=== PATIENT | female | born 1995 | race Two or more races ===

== ENCOUNTER 2023-09-22 19:30 | Emergency (ER) | payer MEDICAID, OTHER ==
[~2023-09-22] VITALS: Ht 167.6 cm; Wt 97.7 kg
[2023-09-22 20:22] LABS: Basophils # (auto) 0 10 ^3/uL (0-0.2); Basophils % (auto) 0.4 % (0.0-2.0); Eosinophils # (auto) 0.1 10 ^3/uL (0-0.8); Eosinophils % (auto) 0.8 % (0.0-7.0); Hematocrit 36.6 % (36.0-46.0); Lymphocytes # (auto) 2.9 10 ^3/uL (0.4-5.4); Lymphocytes % (auto) 25.9 % (10.0-50.0); Mean Corpuscular Hemoglobin 27.9 pg (28.0-32.0); Mean Corpuscular Hgb Conc. 32.8 g/dL (32.0-36.0); Monocytes # (auto) 0.8 10 ^3/uL (0-1.3); Monocytes % (auto) 7.2 % (0.0-12.0); Neutrophils # (auto) 7.4 10 ^3/uL (1.6-8.6); Neutrophils % (auto) 65.7 % (37.0-80.0); Nucleated Red Blood Cells % 0.1 %; Red Cell Distribution Width 14.1 % (11.8-14.3); White Blood Cell 11.3 10^3/uL (4.4-10.8)
[2023-09-22 20:41] LABS: Alanine Aminotransferase 22 U/L (7-40); Albumin 4.4 g/dL (3.2-4.8); Alkaline Phosphatase 50 U/L (46-116); Anion Gap 10 (5-15); Aspartate Aminotransferase 24 U/L (13-40); Calcium 9.3 mg/dL (8.7-10.4); Carbon Dioxide 20 mmol/L (20-30); Chloride 105 mmol/L (98-107); Glucose 93 mg/dL (74-106); Potassium 3.5 mmol/L (3.5-5.1); Sodium 135 mmol/L (136-145)
[2023-09-22 20:42] LABS: Bilirubin, Total 0.3 mg/dL (0.2-1.0); Total Protein 7.3 g/dL (5.7-8.2)
[2023-09-22 20:49] LABS: BUN/Creatinine Ratio 6.7 (10.0-20.0); Blood Urea Nitrogen < 5 mg/dL (9-23)
[2023-09-22 20:57] LABS: Urine Bacteria NONE SEEN /hpf (None Seen); Urine Blood 3+ /uL (Negative); Urine Clarity Clear (Clear); Urine Color Colorless (Yellow); Urine Protein, UAD Negative (Negative); Urine Specific Gravity 1.011 (1.001-1.035); Urine Urobilinogen Normal (Negative); Urine WBC <1 /hpf (0 - 5); Urine pH 6.5 (5.0-8.0)
[2023-09-22 20:59] VITALS: PULSE 79; O2SAT 98
[2023-09-22] MEDS ORDERED: ACETAMINOPHEN 325 MG TAB PO ONE (21:00)
[2023-09-22 23:07] VITALS: BP 98/47; PULSE 63; RESP 18; TEMP 98.3; O2SAT 99
== END 2023-09-22 23:32 | disposition home or self-care (01) ==
LOC: ER 19:30
DX: O20.0 Threatened abortion (principal); R10.2 Pelvic and perineal pain; Z3A.01 Less than 8 weeks gestation of pregnancy; Z88.8 Allergy status to other drugs, medicaments and biological substances
CPT/HCPCS: 36415; 76801; 80053; 81001; 84702; 85025; 86901

== ENCOUNTER 2023-12-01 13:57 | Emergency (ER) | payer MEDICAID ==
[~2023-12-01] VITALS: Ht 167.6 cm; Wt 92.1 kg
[2023-12-01] MEDS: ACETAMINOPHEN 500 MG TAB PO ONE (14:45)
[2023-12-01 14:49] LABS: Basophils # (auto) 0.1 10 ^3/uL (0-0.2); Basophils % (auto) 1.1 % (0.0-2.0); Eosinophils # (auto) 0 10 ^3/uL (0-0.8); Eosinophils % (auto) 0.8 % (0.0-7.0); Hematocrit 38.5 % (36.0-46.0); Hemoglobin 12.6 g/dL (12.2-16.2); Lymphocytes # (auto) 1.7 10 ^3/uL (0.4-5.4); Lymphocytes % (auto) 27.3 % (10.0-50.0); Mean Corpuscular Hgb Conc. 32.6 g/dL (32.0-36.0); Mean Corpuscular Volume 82.9 fL (80.0-100.0); Monocytes # (auto) 0.5 10 ^3/uL (0-1.3); Monocytes % (auto) 7.3 % (0.0-12.0); Neutrophils % (auto) 63.5 % (37.0-80.0); Red Blood Cells 4.65 10^6/uL (4.0-5.20); Red Cell Distribution Width 14.3 % (11.8-14.3); White Blood Cell 6.3 10^3/uL (4.4-10.8)
[2023-12-01 15:14] LABS: Urine Bacteria FEW /hpf (None Seen); Urine Blood Negative /uL (Negative); Urine Clarity HAZY (Clear); Urine Color Yellow (Yellow); Urine Mucus FEW (None Seen); Urine Protein, UAD TRACE (Negative); Urine Urobilinogen Normal (Negative); Urine WBC 2 /hpf (0 - 5)
[2023-12-01 15:20] LABS: Alanine Aminotransferase 22 U/L (7-40); Albumin 4.4 g/dL (3.2-4.8); Alkaline Phosphatase 54 U/L (46-116); Anion Gap 4 (5-15); Aspartate Aminotransferase 30 U/L (13-40); BUN/Creatinine Ratio 10.7 (10.0-20.0); Bilirubin, Total 0.3 mg/dL (0.2-1.0); Blood Urea Nitrogen 9 mg/dL (9-23); Calcium 9.4 mg/dL (8.5-10.1); Carbon Dioxide 29 mmol/L (20-30); Chloride 109 mmol/L (98-107); Glucose 107 mg/dL (74-106); Potassium 3.9 mmol/L (3.5-5.1); Sodium 142 mmol/L (136-145); Total Protein 6.7 g/dL (5.7-8.2)
[2023-12-01] MEDS ORDERED: MISO200T67 PO (16:47)
[2023-12-01 17:46] VITALS: BP 120/65; PULSE 76; RESP 16; O2SAT 99
== END 2023-12-01 17:48 | disposition home or self-care (01) ==
LOC: ER 13:57
DX: O73.1 Retained portions of placenta and membranes, without hemorrhage (principal); R10.2 Pelvic and perineal pain; Z88.6 Allergy status to analgesic agent; Z88.8 Allergy status to other drugs, medicaments and biological substances
CPT/HCPCS: 36415; 76801; 80053; 81001; 84702; 85025

== ENCOUNTER 2024-05-14 08:55 | Emergency (ER) | payer MEDICAID ==
[~2024-05-14] VITALS: Ht 167.6 cm; Wt 85.2 kg
[~2024-05-14 08:55] MED LIST: MISO200T67 PO
[2024-05-14 10:03] LABS: Urine Bacteria None Seen /hpf (None Seen)
[2024-05-14 10:03] LABS: Basophils # (auto) 0 10 ^3/uL (0-0.2); Basophils % (auto) 0.5 % (0.0-2.0); Eosinophils # (auto) 0 10 ^3/uL (0-0.8); Eosinophils % (auto) 0.5 % (0.0-7.0); Hematocrit 36.6 % (36.0-46.0); Hemoglobin 12.2 g/dL (12.2-16.2); Lymphocytes % (auto) 22.8 % (10.0-50.0); Mean Corpuscular Hemoglobin 28.2 pg (28.0-32.0); Mean Corpuscular Hgb Conc. 33.3 g/dL (32.0-36.0); Mean Corpuscular Volume 84.6 fL (80.0-100.0); Monocytes # (auto) 0.6 10 ^3/uL (0-1.3); Monocytes % (auto) 7.1 % (0.0-12.0); Neutrophils # (auto) 6.2 10 ^3/uL (1.6-8.6); Neutrophils % (auto) 69.1 % (37.0-80.0); Platelet Count (auto) 258 10^3/uL (140-450); Red Blood Cells 4.32 10^6/uL (4.0-5.20); Red Cell Distribution Width 15.7 % (11.8-14.3); White Blood Cell 8.9 10^3/uL (4.4-10.8)
[2024-05-14] MEDS: ONDANSETRON HCL 4 MG/2 ML VIAL IV ONE (10:07)
[2024-05-14] MEDS: SODIUM CHLORIDE 0.9% 1,000 ML IV ONE (10:09)
[2024-05-14 10:14] LABS: Chloride 107 mmol/L (98-107); Potassium 4.1 mmol/L (3.5-5.1); Sodium 136 mmol/L (136-145)
[2024-05-14 10:15] LABS: Anion Gap 5 (5-15); Calcium 9.8 mg/dL (8.7-10.4); Carbon Dioxide 24 mmol/L (20-30)
[2024-05-14 10:19] LABS: Amphetamine Screen, Urine Neg (NEGATIVE); Barbiturate Scree,Urine Neg (NEGATIVE); Benzodiazephine Screen, Urine Neg (NEGATIVE); Cocaine Screen, Urine Neg (NEGATIVE)
[2024-05-14 10:20] LABS: BUN/Creatinine Ratio 8.5 (10.0-20.0); Blood Urea Nitrogen 6 mg/dL (9-23); Glucose 90 mg/dL (74-106)
[2024-05-14 10:20] LABS: Cannabinoid Screen, Urine Pos (NEGATIVE); Opiate Scree,Urine Neg (NEGATIVE); Phencyclidine Screen, Urine Neg (NEGATIVE)
[2024-05-14 10:26] VITALS: BP 108/64; PULSE 78; RESP 16; TEMP 97.8; O2SAT 100
[2024-05-14 10:42] LABS: Urine Blood 2+ /uL (Negative); Urine Clarity Clear (Clear); Urine Color Yellow (Yellow); Urine Mucus FEW (None Seen); Urine Protein, UAD TRACE (Negative); Urine Specific Gravity 1.024 (1.001-1.035); Urine Urobilinogen Normal (Negative); Urine WBC 3 /hpf (0 - 5)
[2024-05-14 11:40] LABS: COVID19 ANTIGEN SOFIA FIA NEGATIVE (NEGATIVE)
[2024-05-14] MEDS ORDERED: ZOFR4T PO (12:29)
== END 2024-05-14 13:01 | disposition home or self-care (01) ==
LOC: ER 08:55
DX: O20.0 Threatened abortion (principal); R10.2 Pelvic and perineal pain; O21.9 Vomiting of pregnancy, unspecified; O26.891 Other specified pregnancy related conditions, first trimester; R19.7 Diarrhea, unspecified; Z3A.01 Less than 8 weeks gestation of pregnancy; Z88.8 Allergy status to other drugs, medicaments and biological substances; Z79.899 Other long term (current) drug therapy; Z20.822 Contact with and (suspected) exposure to COVID-19
CPT/HCPCS: 36415; 76801; 76817; 80048; 80307; 81001; 81025; 84702; 85025; 87426; 96361; 96374; 99285; J2405; J7030

== ENCOUNTER 2025-04-10 17:03 | Emergency (ER) | payer MEDICAID ==
[~2025-04-10] VITALS: Ht 167.6 cm; Wt 95.7 kg
[~2025-04-10 17:03] MED LIST changes: +ZOFR4T PO
[2025-04-10] MEDS ORDERED: ACETAMINOPHEN 325 MG TAB PO ONE (17:45)
--- NOTE | 2025-04-10 17:45 | ED.PDOC ---
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 Patient reports that she has been experiencing vaginal bleeding with associated headache, dizziness, nausea, and suprapubic abdominal pain for the past 2 days. Patient relays that she is currently 11 weeks at this time. Patient states that she has not followed up with OBGYN at this time. Patient notes she has had one previous miscarriage in the past and she is A1. Patient denies any dysuria, flank pain, fever, chills, vomiting, or diarrhea. Chief Complaint: Vaginal Bleed Time Seen by MD: 17:38 Reviewed Notes: Nurses Notes, Medications, Allergies Allergies: Coded Allergies: Acetaminophen (Verified Allergy, Severe, ANGIO EDEMA, HIVES, 09/22/23) Hydrocodone (Verified Allergy, Severe, ANGIO EDEMA, HIVES, 09/22/23) Prednisone (Verified Allergy, Severe, ANGIO EDEMA, HIVES, 09/22/23) Ibuprofen (Verified Allergy, Unknown, 04/10/25) Home Meds Active Scripts Ondansetron Odt 4MG Tab (ZOFRAN PO) 4 Mg Tb, 4 MG PO BID, #30 TAB ODT TAB-DISSOLVE IN MOUTH, THEN SWALLOW Prov:RACHEL HUNTER 05/14/24 Misoprostol (Cytotec) 200 Mcg Tab, 600 MCG PO ONCE, #3 TAB Prov:GORDO SANTOS 12/01/23 Information Source: Patient Mode of Arrival: Ambulatory Timing: Days Prehospital treatment: None Severity: Moderate Bleeding Quality: Bright Red Onset Of Mass/Bleeding: Spontaneous Sexual Activity: Last Consensual [place]: Unknown Control: None History of: Current Past Medical History PAST MEDICAL HISTORY: Denies Past Medical History (Other): Patient has had one miscarriage Surgical History: Denies all surgeries ELIGIBILITY COUNSELOR History: No Pertinent ELIGIBILITY COUNSELOR History 6 Para 4 AB 1 Family History Family History: Reviewed,noncontributory to illness, No family hx of Cancer, No family hx of DM, No family hx of Heart miracle, No family hx of HTN, No family hx ofKidney miracle, No family hx of Liver miracle, No family hx of Lung miracle, No family hx of Stroke Social History Smoker: Non-Smoker Alcohol: Denies ETOH Use Drugs: Denies Drug Use Lives In: Home Constitutional: denies: chills, diaphoresis, fatigue, fever, malaise, sweats, weakness, others EENTM: denies: blurred vision, double vision, ear bleeding, ear discharge, ear drainage, ear pain, ear ringing, eye pain, eye redness, hearing loss, mouth pain, mouth swelling, nasal discharge, nose bleeding, nose congestion, nose pain, photophobia, tearing, throat pain, throat swelling, voice changes, others Respiratory: denies: cough, hemoptysis, orthopnea, SOB at rest, shortness of breath, SOB with excertion, stridor, wheezing, others Cardiovascular: denies: chest pain, dizzy spells, diaphoresis, Dyspnea on exertion, edema, irregular heart beat, left arm pain, lightheadedness, palpitations, PND, syncope, others Gastrointestinal: reports: abdominal pain, nausea; denies: abdomen distended, blood streaked bowels, constipated, diarrhea, dysphagia, difficulty swallowing, hematemesis, melena, poor appetite, poor fluid intake, rectal bleeding, rectal pain, vomiting, others Genitourinary: reports: abnormal vagina bleeding, ; denies: burning, dyspareunia, dysuria, flank pain, frequency, hematuria, incontinence, pain, vagina discharge, urgency, others Neurological: reports: dizziness, headache; denies: fainting, left sided numbness, left sided weakness, numbness, paresthesia, pre-existing deficit, right sided numbness, right sided weakness, seizure, speech problems, tingling, tremors, weakness, others Musculoskeletal: denies: back pain, gout, joint pain, joint swelling, muscle pain, muscle stiffness, neck pain, others Integumetry: denies: bruises, change in color, change in hair/nails, dryness, laceration, lesions, lumps, rash, wounds, others Allergic/Immunocompromised: denies: Difficulty Healing, Frequent Infections, Hives, Itching, others Hematologic/Lymphatic: denies: anemia, blood clots, easy bleeding, easy bruising, swollen glands, others Endocrine: denies: excessive hunger, excessive sweating, excessive thirst, excessive urination, flushing, intolerance to cold, intolerance to heat, unexplained weight gain, unexplained weight loss, others Psychiatric: denies: anxiety, bipolar disorder, depression, hopeless, panic disorder, schizophrenia, sleepless, suicidal, others All Other Systems: Reviewed and Negative Physical Exam General Appearance: Moderate Distress ([id number] distress due to some cramping concerns and anxiety related to her vaginal bleeding), Obese HEENT: Normal ENT Inspection, Pharynx Normal, TMs Normal Neck: Full Range of Motion, Non-Tender, Normal, Normal Inspection Respiratory: Chest Non-Tender, Lungs Clear, No Accessory Muscle Use, No Respiratory Distress, Normal Breath Sounds Cardiovascular: No Edema, No JVD, No Murmur, No Gallop, Normal Peripheral Pulses, Regular Rate/Rhythm Breast Exam: Deferred Gastrointestinal: Other (Diffuse bilateral lower quadrant abdominal tenderness to palpation. No signs of trauma. Difficult to assess due to body habitus.) Genitalia: Deferred Pelvic: Deferred Rectal: Deferred Extremities: No calf tenderness, Normal capillary refill, Normal inspection, Normal range of motion, Non-tender, No pedal edema Neurologic: Alert, No Motor Deficits, Normal Affect, Normal Mood, No Sensory Deficits Cerebellar Function: Normal Reflexes: Normal Skin: Dry, Normal Color, Warm Lymphatic: No Adenopathy Was a procedure done? Was a procedure done?: No Differential Diagnosis (ELIGIBILITY COUNSELOR) Vaginal Bleeding: - Inevitable, - Threatened, Ectopic , Menorrhagia, Other (First trimester vaginal bleeding, UTI, sepsis, electrolyte abnormality) X-Ray, Labs, Meds, VS Vital Signs Date Time Temp Pulse Resp B/P (MAP) Pulse Ox O2 Delivery O2 Flow Rate FiO2 04/10/25 17:04 98.2 83 20 117/60 (79) 100 98.2 Lab Test 04/10/25 17:47 04/10/25 17:22 Range/Units White Blood Count 10.5 4.4-10.8 10^3/uL Red Blood Count 4.30 4.0-5.20 10^6/uL Hemoglobin 12.1 L 12.2-16.2 g/dL Hematocrit 36.3 36.0-46.0 % Mean Corpuscular Volume 84.4 80.0-100.0 fL Mean Corpuscular Hemoglobin 28.1 28.0-32.0 pg Mean Corpuscular Hemoglobin Concent 33.3 32.0-36.0 g/dL Red Cell Distribution Width 15.6 H 11.8-14.3 % Platelet Count 271 140-450 10^3/uL Mean Platelet Volume 9.8 6.9-10.8 fL Neutrophils (%) (Auto) 64.3 37.0-80.0 % Lymphocytes (%) (Auto) 28.2 10.0-50.0 % Monocytes (%) (Auto) 5.4 0.0-12.0 % Eosinophils (%) (Auto) 1.8 0.0-7.0 % Basophils (%) (Auto) 0.3 0.0-2.0 % Neutrophils # (Auto) 6.8 1.6-8.6 10 ^3/uL Lymphocytes # (Auto) 3.0 0.4-5.4 10 ^3/uL Monocytes # (Auto) 0.6 0-1.3 10 ^3/uL Eosinophils # (Auto) 0.2 0-0.8 10 ^3/uL Basophils # (Auto) 0 0-0.2 10 ^3/uL Nucleated Red Blood Cells 0.0 % Sodium Level 137 136-145 mmol/L Potassium Level 3.9 3.5-5.1 mmol/L Chloride Level 104 98-107 mmol/L Carbon Dioxide Level 23 20-31 mmol/L Anion Gap 10 5-15 Blood Urea Nitrogen 10 9-23 mg/dL Creatinine 0.68 0.550-1.02 mg/dL Glomerular Filtration Rate Calc 122 >90 mL/min BUN/Creatinine Ratio 14.7 10.0-20.0 Serum Glucose 114 H 74-106 mg/dL Calcium Level 9.9 8.7-10.4 mg/dL Beta HCG, Quantitative 21588.4 H 1.5-4.2 mIU/mL Urine Color Light-yellow Yellow Urine Clarity Clear Clear Urine pH 6.0 5.0-9.0 Urine Specific [place] 1.018 1.001-1.035 Urine Protein Negative Negative Urine Ketones Negative Negative Urine Blood 1+ H Negative /uL Urine Nitrite Negative Negative Urine Bilirubin Negative Negative Urine Urobilinogen Normal Negative mg/dL Urine Leukocyte Esterase 1+ Negative /uL Urine RBC 1 0 - 4 /hpf Urine Microscopic WBC 4 0-5 /HPF Urine Squamous Epithelial Cells Few <5 /hpf Urine Bacteria Few H None Seen /hpf Urine Glucose Normal Normal mg/dL Current Medications Medications (Trade) Dose Ordered Sig/Kurtis Route Start Time Stop Time Status Last Admin Ondansetron HCl (Zofran Po) 4 mg ONCE ONCE PO 04/10/25 17:45 04/10/25 17:46 DC 04/10/25 18:34 X-Ray, Labs, Meds, VS Comment All studies performed the ED were evaluated by me personally. Serum studies were unremarkable for any systemic concerns. Patient[place]CG [place] [address]. Urinalysis confirmed a small urinary tract infection and OB ultrasound confirmed a nine week five day viable . Has subchorionic hematoma was noted. Has been advised to follow up with OB for management throughout . 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 Follow up with OB as soon as possible for management of her early e-Prescriptions Vit W/ Ferrous Fumara ( One Daily) Daily Tab 1 TAB PO DAILY, #90 TAB 3 Refills Prov: GORDO SANTOS PAC 04/10/25 Cephalexin (KEFLEX CAPSULE) 250 Mg Cp 1 CAP PO QID for 3 Days, #12 CAP Prov: GORDO SANTOS PAC 04/10/25 Discharged With: Self, Friend Critical Care Note Critical Care Time?: No Stability Stability form required: No Heart Score Heart Score: Heart Score Response (Comments) Value History N/A 0 EKG N/A 0 Age N/A 0 Risk Factors N/A 0 Troponin N/A 0 Total 0 I personally scribed for GORDO SANTOS PAC ([email or web address]) on 04/10/25 at 17:45. Electronically submitted by Erlin Martinez ([email or web address]). GORDO SANTOS PAC Apr 10, 2025 17:45
[2025-04-10 18:00] LABS: Urine Protein, UAD Negative (Negative)
[2025-04-10] MEDS: ACETAMINOPHEN 500 MG TAB or CAP PO ONE (18:32)
[2025-04-10] MEDS: ONDANSETRON ODT 4 MG TAB PO ONE (18:34)
[2025-04-10 18:35] LABS: Hematocrit 36.3 % (36.0-46.0); Hemoglobin 12.1 g/dL (12.2-16.2); Mean Corpuscular Hemoglobin 28.1 pg (28.0-32.0); Mean Corpuscular Volume 84.4 fL (80.0-100.0); Nucleated Red Blood Cells % 0.0 %
[2025-04-10 18:44] LABS: Chloride 104 mmol/L (98-107); Potassium 3.9 mmol/L (3.5-5.1); Sodium 137 mmol/L (136-145)
[2025-04-10 18:45] LABS: Anion Gap 10 (5-15); Calcium 9.9 mg/dL (8.7-10.4); Carbon Dioxide 23 mmol/L (20-31)
[2025-04-10 18:50] LABS: BUN/Creatinine Ratio 14.7 (10.0-20.0); Blood Urea Nitrogen 10 mg/dL (9-23)
[2025-04-10 18:51] LABS: Glucose 114 mg/dL (74-106)
--- NOTE | 2025-04-10 19:20 | DVH ---
OB EVALUATION, LESS THAN 14 WEEKS CLINICAL HISTORY: Vaginal bleed COMPARISON: No recent prior studies available for comparison. TECHNIQUE: Grayscale, color-flow Doppler, and spectral Doppler ultrasound of the pelvis is performed by transabdominal technique. FINDINGS: The uterus measures 11.2 x 6.5 x 7.3 cm. Intrauterine gestational sac and pole visualized. Mean gestational sac diameter 3.9 cm. [place]- rump length 3.3 cm. Average ultrasound age 9 weeks 5 days. heart rate 146 beats per minute. Estimated due date 11/08/2025. Small, curvilinear hypoechoic structure adjacent to the gestational sac measuring approximately 1 x 0 .7 x 0.4 cm. Right ovary measures 3.3 x 2.1 x 2.1 cm. This includes echoic structure measuring approximately 1.6 cm in diameter. This may represent a corpus luteum. The left ovary is not visualized. No free fluid identified within the cul-de-sac. IMPRESSION: Single living intrauterine gestation as above. Suspected small subchorionic hematoma. Recommend continued follow-up as clinically indicated.
[2025-04-10] MEDS ORDERED: PREN-96 PO (19:40)
[2025-04-10] MEDS ORDERED: CEPH250C PO (19:40)
[2025-04-10 19:49] VITALS: BP 101/61; PULSE 80; RESP 18; TEMP 97.7; O2SAT 100
[2025-04-10] MEDS ORDERED: ZOFR4T PO (19:56)
== END 2025-04-10 20:00 | disposition home or self-care (01) ==
LOC: ER 17:03
DX: O20.9 Hemorrhage in early pregnancy, unspecified (principal); O20.0 Threatened abortion; O23.41 Unspecified infection of urinary tract in pregnancy, first trimester; N39.0 Urinary tract infection, site not specified; Z3A.11 11 weeks gestation of pregnancy; Z88.8 Allergy status to other drugs, medicaments and biological substances; Z88.6 Allergy status to analgesic agent; Z88.5 Allergy status to narcotic agent; Z79.899 Other long term (current) drug therapy
CPT/HCPCS: 36415; 76801; 80048; 81001; 84702; 85025; 99284; Q0162